=== PATIENT | female | born 1955 | race Caucasian/White ===

== ENCOUNTER 2018-05-30 17:27 | Observation (INO) | payer BC ==
[2018-05-30] MEDS ORDERED: Albuterol/Ipratropium NEB.SOL* Albuterol 2.5 MG/Ipratropium 0.5 MG 3 ML INH ONE (17:52)
[2018-05-30] MEDS ORDERED: predniSONE TAB* 20 MG PO ONE (17:52)
[2018-05-30 18:06] LABS: ABS Basophils 0.1 10^3/ul (0-0.2); ABS Eosinophils 0.9 10^3/ul (0-0.6); ABS Lymphocytes 0.8 10^3/ul (1.0-4.8); ABS Monocytes 0.9 10^3/ul (0-0.8); ABS Neutrophils 9.5 10^3/ul (1.5-7.7); ABS Nucleated RBC 0 10^3/ul; Eosinophil % 7.6 %; Hematocrit 40 % (35-47); Hemoglobin 12.9 g/dl (12.0-16.0); Lymphocyte % 6.7 %; Mean Corpuscular HGB Conc 33 g/dl (31-36); Mean Corpuscular Hemoglobin 30 pg (27-31); Mean Corpuscular Volume 93 fL (80-97); Mean Platelet Volume 7.3 fL (7.4-10.4); Nucleated Red Blood Cells % 0; Platelet Count 302 10^3/ul (150-450); Red Blood Count 4.25 10^6/ul (4.00-5.40); Red Cell Distribution Width 14 % (10.5-15); White Blood Count 12.3 10^3/ul (3.5-10.8)
[2018-05-30 18:26] LABS: Albumin 4.6 g/dL (3.2-5.2); Albumin/Globulin Ratio 1.8 (1-3); BUN/Creatinine Ratio 21.7 (8-20); C Reactive Protein 8.42 mg/L (<8.01); Calcium 9.7 mg/dL (8.6-10.3); EGFR African American 83.5 (>60); Globulin 2.6 g/dL (2-4); Total Bilirubin 0.4 mg/dL (0.2-1.0); Total Protein 7.2 g/dL (6.4-8.9)
[2018-05-30 18:30] LABS: Influenza A Molecular NEGATIVE (Negative); Influenza B Molecular NEGATIVE (Negative)
[2018-05-30] MEDS ORDERED: NS 0.9% 1000 ML** 1,000 ML IV ONE (19:17)
[2018-05-30 21:01] LABS: Urine Appearance Clear; Urine Bilirubin Negative (Negative); Urine Blood Negative (Negative); Urine Color Yellow; Urine Glucose Negative (Negative); Urine Ketones Negative (Negative); Urine Nitrite Negative (Negative); Urine Protein Negative (Negative); Urine Specific Gravity 1.015 (1.010-1.030); Urine Urobilinogen Negative (Negative)
[2018-05-30] MEDS ORDERED: Levofloxacin 750 MG IVPREMIX(* 750 MG/150 ML BAG IVPB ONE (21:43)
[2018-05-30] MEDS ORDERED: Magnesium Sulfate 2 GM IV* 2 GM/50 ML BAG IVPB ONE (21:43)
--- NOTE | 2018-05-31 01:19 | ED ---
Shortness of Breath - HPI Summary HPI Summary: Patient complains of shortness of breath, cough, headache, chills 2 days. Denies fever, sore throat, neck stiffness, CP, N/V/D, abdominal pain, change in urine, change in BM. Medical history is COPD. Denies cardiac history. Also states she has been out of her inhaler for 5 days. Does not have nebulizer. No home O2 at baseline. Negative smoker. - History of Current Complaint Chief Complaint: EDShortnessOfBreath Time Seen by Provider: 05/30/18 17:41 Hx Obtained From: Patient Onset/Duration: Gradual Onset Timing: Constant Current Severity: Moderate Dyspnea At: Exertion Alleviating Factors: Nothing Associated Signs & Symptoms: Cough (Nonproductive), Wheezing, Chills - Allergy/Home Medications Allergies/Adverse Reactions: Allergies Allergy/AdvReac Type Severity Reaction Status Date / Time ibuprofen Allergy Difficulty Verified 05/30/18 17:50 Breathing/Wheezing theophylline Allergy Shakes Verified 05/30/18 17:50 Home Medications: Home Medications Breo Ellipta MDI 100/25(NF) 2 puff INH DAILY 05/30/18 [History Confirmed ] Spiriva Inhaler DEVICE* [Tiotropium Inhaler DEVICE*] 1 puff PO DAILY 05/30/18 [ History Confirmed 05/31/18] PMH/Surg Hx/FS Hx/Imm Hx Endocrine/Hematology History: Denies: Hx Diabetes, Hx Thyroid Disease Cardiovascular History: Denies: Hx Hypertension Respiratory History: Reports: Hx Asthma Denies: Hx Chronic Obstructive Pulmonary Disease (COPD) GI History: Denies: Hx Ulcer Musculoskeletal History: Denies: Hx Rheumatoid Arthritis, Hx Osteoporosis Sensory History: Reports: Hx Cataracts, Hx Contacts or Glasses - GLASSES Denies: Hx Hearing Aid Opthamlomology History: Reports: Hx Cataracts, Hx Contacts or Glasses - GLASSES Psychiatric History: Reports: Hx Depression - ON MEDICATION FOR - Cancer History Hx Chemotherapy: No Hx Radiation Therapy: No - Surgical History Surgery Procedure, Year, and Place: 3 [id number]. FALLOPIAN TUBE REMOVED. HYSTERECTOMY. OVARY REMOVED. I&D for MRSA left underarm Hx Anesthesia Reactions: Yes - REACTION TO IBUPROFEN WITH LAST SURGERY-OVARY REMOVED Infectious Disease History: Yes Infectious Disease History: Reports: Hx of Known/Suspected MRSA, Hx Shingles Denies: Hx Clostridium Difficile, Hx Hepatitis, Hx Human Immunodeficiency Virus (HIV), Hx Tuberculosis, Hx Known/Suspected VRE, Hx Known/Suspected VRSA, History Other Infectious Disease, Traveled Outside the [place] in Last 30 Days - Social History Alcohol Use: Weekly Alcohol Amount: Glass of wine Substance Use Type: Reports: None Smoking Status (MU): Never Smoked Tobacco Review of Systems Constitutional: Negative Eyes: Negative ENT: Negative Cardiovascular: Negative Positive: Shortness Of Breath, Cough Gastrointestinal: Negative Genitourinary: Negative Musculoskeletal: Negative Skin: Negative Positive: Headache Psychological: Normal All Other Systems Reviewed And Are Negative: Yes Physical Exam Triage Information Reviewed: Yes Vital Signs On Initial Exam: Initial Vitals Temp Pulse Resp BP Pulse Ox 99.8 F 134 28 158/89 86 05/30/18 17:34 05/30/18 17:34 05/30/18 17:34 05/30/18 17:34 05/30/18 17:34 Vital Signs Reviewed: Yes Appearance: Positive: Well-Appearing Skin: Positive: Warm Head/Face: Positive: Normal Head/Face Inspection Eyes: Positive: Normal ENT: Positive: Normal ENT inspection Neck: Positive: Supple Respiratory/Lung Sounds: Positive: Wheezes Cardiovascular: Positive: Normal Abdomen Description: Positive: Nontender Musculoskeletal: Positive: Normal Neurological: Positive: Normal Psychiatric: Positive: Normal AVPU Assessment: Alert - [place] Coma Scale Best Eye Response: 4 - Spontaneous Best Motor Response: 6 - Obeys Commands Best Verbal Response: 5 - Oriented Coma Scale Total: 15 Diagnostics - Vital Signs Vital Signs Temp Pulse Resp BP Pulse Ox 05/31/18 00:19 85 23 118/75 93 05/31/18 00:00 86 23 92 05/30/18 23:50 85 22 135/82 93 05/30/18 23:25 98.2 F 05/30/18 23:19 102 15 100/63 95 05/30/18 23:13 97 23 95 05/30/18 23:00 92 17 96 05/30/18 22:49 96 21 119/71 96 05/30/18 22:19 100 20 113/71 96 05/30/18 22:00 104 21 96 05/30/18 21:49 103 14 121/75 95 05/30/18 21:19 115 22 129/73 92 05/30/18 21:00 117 21 90 05/30/18 20:49 20 109/74 05/30/18 20:19 117 19 130/70 91 05/30/18 20:00 117 21 97 05/30/18 19:49 116 19 123/61 96 05/30/18 19:19 132 16 106/67 95 05/30/18 19:00 130 23 90 05/30/18 18:49 129 22 119/64 92 05/30/18 18:46 130 26 116/61 93 05/30/18 18:24 129 15 100 05/30/18 18:00 21 05/30/18 17:49 119 16 141/74 96 05/30/18 17:34 99.8 F 134 28 158/89 86 - Laboratory Lab Results: Lab Results 05/30/18 05/30/18 05/30/18 Range/Units 18:00 18:00 18:00 WBC 12.3 H (3.5-10.8) 10^3/ul RBC 4.25 (4.00-5.40) 10^6/ul Hgb 12.9 (12.0-16.0) g/dl Hct 40 (35-47) % MCV 93 (80-97) fL MCH 30 (27-31) pg MCHC 33 (31-36) g/dl RDW 14 (10.5-15) % Plt Count 302 (150-450) 10^3/ul MPV 7.3 L (7.4-10.4) fL Neut % (Auto) 77.0 % Lymph % (Auto) 6.7 % Pickens % (Auto) 7.5 % Eos % (Auto) 7.6 % Baso % (Auto) 1.2 % Absolute Neuts (auto) 9.5 H (1.5-7.7) 10^3/ul Absolute Lymphs (auto) 0.8 L (1.0-4.8) 10^3/ul Absolute Monos (auto) 0.9 H (0-0.8) 10^3/ul Absolute Eos (auto) 0.9 H (0-0.6) 10^3/ul Absolute Basos (auto) 0.1 (0-0.2) 10^3/ul Absolute Nucleated RBC 0 10^3/ul Nucleated RBC % 0 D-Dimer, Quantitative (Less Than 230) ng/mL ABG pH (7.35-7.45) ABG pCO2 (35-45) mmHg ABG pO2 (80-100) mmHg ABG HCO3 (19-31) mmol/L ABG O2 Saturation (94.0-98.0) % ABG Base Excess (-2.0-2.0) mmol/L Sodium 137 (135-145) mmol/L Potassium 4.0 (3.5-5.0) mmol/L Chloride 104 (101-111) mmol/L Carbon Dioxide 28 (22-32) mmol/L Anion Gap 5 (2-11) mmol/L BUN 18 (6-24) mg/dL Creatinine 0.83 (0.51-0.95) mg/dL Est GFR ( Amer) 83.5 (>60) Est GFR (Non-Af Amer) 69.0 (>60) BUN/Creatinine Ratio 21.7 H (8-20) Glucose 126 H (70-100) mg/dL Lactic Acid 1.1 (0.5-2.0) mmol/L Calcium 9.7 (8.6-10.3) mg/dL Total Bilirubin 0.40 (0.2-1.0) mg/dL AST 16 (13-39) U/L ALT 14 (7-52) U/L Alkaline Phosphatase 58 (34-104) U/L Troponin I 0.00 (<0.04) ng/mL C-Reactive Protein 8.42 H (<8.01) mg/L B-Natriuretic Peptide (<=100) pg/mL Total Protein 7.2 (6.4-8.9) g/dL Albumin 4.6 (3.2-5.2) g/dL Globulin 2.6 (2-4) g/dL Albumin/Globulin Ratio 1.8 (1-3) Urine Color Urine Appearance Urine pH (5-9) Ur Specific Banks (1.010-1.030) Urine Protein (Negative) Urine Ketones (Negative) Urine Blood (Negative) Urine Nitrate (Negative) Urine Bilirubin (Negative) Urine Urobilinogen (Negative) Ur Leukocyte Esterase (Negative) Urine Glucose (Negative) Influenza A (Rapid) (Negative) Influenza B (Rapid) (Negative) 05/30/18 05/30/18 05/30/18 Range/Units 18:00 18:00 18:17 WBC (3.5-10.8) 10^3/ul RBC (4.00-5.40) 10^6/ul Hgb (12.0-16.0) g/dl Hct (35-47) % MCV (80-97) fL MCH (27-31) pg MCHC (31-36) g/dl RDW (10.5-15) % Plt Count (150-450) 10^3/ul MPV (7.4-10.4) fL Neut % (Auto) % Lymph % (Auto) % Pickens % (Auto) % Eos % (Auto) % Baso % (Auto) % Absolute Neuts (auto) (1.5-7.7) 10^3/ul Absolute Lymphs (auto) (1.0-4.8) 10^3/ul Absolute Monos (auto) (0-0.8) 10^3/ul Absolute Eos (auto) (0-0.6) 10^3/ul Absolute Basos (auto) (0-0.2) 10^3/ul Absolute Nucleated RBC 10^3/ul Nucleated RBC % D-Dimer, Quantitative < 200 (Less Than 230) ng/mL ABG pH (7.35-7.45) ABG pCO2 (35-45) mmHg ABG pO2 (80-100) mmHg ABG HCO3 (19-31) mmol/L ABG O2 Saturation (94.0-98.0) % ABG Base Excess (-2.0-2.0) mmol/L Sodium (135-145) mmol/L Potassium (3.5-5.0) mmol/L Chloride (101-111) mmol/L Carbon Dioxide (22-32) mmol/L Anion Gap (2-11) mmol/L BUN (6-24) mg/dL Creatinine (0.51-0.95) mg/dL Est GFR ( Amer) (>60) Est GFR (Non-Af Amer) (>60) BUN/Creatinine Ratio (8-20) Glucose (70-100) mg/dL Lactic Acid (0.5-2.0) mmol/L Calcium (8.6-10.3) mg/dL Total Bilirubin (0.2-1.0) mg/dL AST (13-39) U/L ALT (7-52) U/L Alkaline Phosphatase (34-104) U/L Troponin I (<0.04) ng/mL C-Reactive Protein (<8.01) mg/L B-Natriuretic Peptide 79 (<=100) pg/mL Total Protein (6.4-8.9) g/dL Albumin (3.2-5.2) g/dL Globulin (2-4) g/dL Albumin/Globulin Ratio (1-3) Urine Color Urine Appearance Urine pH (5-9) Ur Specific Banks (1.010-1.030) Urine Protein (Negative) Urine Ketones (Negative) Urine Blood (Negative) Urine Nitrate (Negative) Urine Bilirubin (Negative) Urine Urobilinogen (Negative) Ur Leukocyte Esterase (Negative) Urine Glucose (Negative) Influenza A (Rapid) Negative (Negative) Influenza B (Rapid) Negative (Negative) 05/30/18 05/30/18 05/30/18 Range/Units 18:20 20:35 20:47 WBC (3.5-10.8) 10^3/ul RBC (4.00-5.40) 10^6/ul Hgb (12.0-16.0) g/dl Hct (35-47) % MCV (80-97) fL MCH (27-31) pg MCHC (31-36) g/dl RDW (10.5-15) % Plt Count (150-450) 10^3/ul MPV (7.4-10.4) fL Neut % (Auto) % Lymph % (Auto) % [place] % (Auto) % Eos % (Auto) % Baso % (Auto) % Absolute Neuts (auto) (1.5-7.7) 10^3/ul Absolute Lymphs (auto) (1.0-4.8) 10^3/ul Absolute Monos (auto) (0-0.8) 10^3/ul Absolute Eos (auto) (0-0.6) 10^3/ul Absolute Basos (auto) (0-0.2) 10^3/ul Absolute Nucleated RBC 10^3/ul Nucleated RBC % D-Dimer, Quantitative (Less Than 230) ng/mL ABG pH 7.46 H 7.45 (7.35-7.45) ABG pCO2 35 33 L (35-45) mmHg ABG pO2 153 H 67 L (80-100) mmHg ABG HCO3 26.0 24.5 (19-31) mmol/L ABG O2 Saturation 98.7 H 95.1 (94.0-98.0) % ABG Base Excess 1.4 -0.4 (-2.0-2.0) mmol/L Sodium (135-145) mmol/L Potassium (3.5-5.0) mmol/L Chloride (101-111) mmol/L Carbon Dioxide (22-32) mmol/L Anion Gap (2-11) mmol/L BUN (6-24) mg/dL Creatinine (0.51-0.95) mg/dL Est GFR ( Amer) (>60) Est GFR (Non-Af Amer) (>60) BUN/Creatinine Ratio (8-20) Glucose (70-100) mg/dL Lactic Acid (0.5-2.0) mmol/L Calcium (8.6-10.3) mg/dL Total Bilirubin (0.2-1.0) mg/dL AST (13-39) U/L ALT (7-52) U/L Alkaline Phosphatase (34-104) U/L Troponin I (<0.04) ng/mL C-Reactive Protein (<8.01) mg/L B-Natriuretic Peptide (<=100) pg/mL Total Protein (6.4-8.9) g/dL Albumin (3.2-5.2) g/dL Globulin (2-4) g/dL Albumin/Globulin Ratio (1-3) Urine Color Yellow Urine Appearance Clear Urine pH 6.0 (5-9) Ur Specific Banks 1.015 (1.010-1.030) Urine Protein Negative (Negative) Urine Ketones Negative (Negative) Urine Blood Negative (Negative) Urine Nitrate Negative (Negative) Urine Bilirubin Negative (Negative) Urine Urobilinogen Negative (Negative) Ur Leukocyte Esterase Negative (Negative) Urine Glucose Negative (Negative) Influenza A (Rapid) (Negative) Influenza B (Rapid) (Negative) Result Diagrams: 05/30/18 18:00 05/30/18 18:00 Lab Statement: Any lab studies that have been ordered have been reviewed, and results considered in the medical decision making process. Course/Dx - Course Course Of Treatment: Patient complains of shortness of breath, cough, headache, chills 2 days. Denies fever, sore throat, neck stiffness, CP, N/V/D, abdominal pain, change in urine, change in BM. Medical history is COPD. Denies cardiac history. Also states she has been out of her inhaler for 5 days. Does not have nebulizer. No home O2 at baseline. Negative smoker. Bilateral wheezes. O2 sats persistently 88% when not on O2, ABG PO2 67%, and after 2 DuoNeb's. Patient placed on O2 at 2 L burning O2 sats up to 95%. Patient persistently tachycardic. Vital signs otherwise within normal limits. EKG unremarkable. Chest x-ray unremarkable. Flu negative. WBC 12.3. D-dimer negative. Admitted to hospitalist for COPD exacerbation, hypoxia, respiratory illness. Patient started on Levaquin. - Diagnoses Provider Diagnoses: COPD exacerbation, Hypoxia, Respiratory illness Discharge - Sign-Out/Discharge Documenting (check all that apply): Patient Departure Patient Received Moderate/Deep Sedation with Procedure: No - Discharge Plan Condition: Stable Disposition: ADMITTED TO [facility] - Billing Disposition and Condition Condition: STABLE Disposition: Admitted to [facility]
[2018-05-31] MEDS ORDERED: Acetaminophen TAB* 325 MG PO PRN (01:45)
[2018-05-31] MEDS ORDERED: Ondansetron INJ* 2 MG/ML VIAL IV PRN (01:45)
[2018-05-31] MEDS ORDERED: Azithromycin TAB* 250 MG PO SCH (02:00)
[2018-05-31] MEDS: Albuterol/Ipratropium NEB.SOL* Albuterol 2.5 MG/Ipratropium 0.5 MG 3 ML INH SCH ×4 (02:42→19:58)
--- NOTE | 2018-05-31 04:31 | HP ---
CC: Dr. Gill Gifford * HISTORY AND PHYSICAL: DATE OF ADMISSION: 05/31/18 PRIMARY CARE PROVIDER: Dr. Gill Gifford. CHIEF COMPLAINT: Shortness of breath. HISTORY OF PRESENT ILLNESS: This is a 63-year-old female with past medical history of asthma, who now presents to the emergency room with complaints of shortness of breath. The patient states that shortness of breath has been progressively worsening over the course of 1 day. The patient reports that she was in [facility] for 5 days and had forgotten her inhalers at home. She has not had any fever, however, is having chills, no palpitations. The shortness of breath is associated with cough of green-colored sputum production. She has not had been exposed to sick people or people with the flu. PAST MEDICAL HISTORY: Asthma. PAST SURGICAL HISTORY: 1. x3. 2. Ovary removal. 3. Hysterectomy. MEDICATIONS: Home medications include: 1. Spiriva 1 puff daily. 2. Sertraline 10 mg at bedtime. 3. Breo-Ellipta 100/25 two puffs inhaled daily. 4. Albuterol inhaler 2 puffs as needed every 6 hours. ALLERGIES: IBUPROFEN as well as THEOPHYLLINE. FAMILY HISTORY: Mother: Lung cancer. Father: of old age, he lived till he was 87. SOCIAL HISTORY: She lives at home with her , does not smoke, occasional wine. REVIEW OF SYSTEMS: She is having chills, however, no noted fever, she is not having any changes in her vision or hearing, no sore throat, she denied any chest pain, see HPI. She is having cough with shortness of breath with green color sputum production. She has not had any abdominal pain, no nausea, no vomiting, no diarrhea, no hematuria, no dysuria, no hesitancy, no rectal pain, no lower extremity edema. She is not having any pain at the joints, no back pain, no headaches, no focal weakness or numbness. PHYSICAL EXAMINATION GENERAL: This is a well-developed, well-nourished female, lying in an ER stretcher in mild respiratory distress. VITAL SIGNS: Blood pressure of 118/75, heart rate of 83, respiratory rate of 23 , pulse ox of 93% on 2 L nasal cannula; once we take her off of oxygen, her pulse ox goes down to 86%. Upon arrival to the emergency room at 5:34, it was documented that her pulse ox was 86%. HEENT: Pupils are equal, round, reactive to light. Atraumatic, normocephalic. Oral mucosa is moist, no nystagmus. LUNGS: There is tachypnea with no use of accessory muscles. She has supplemental oxygenation via nasal cannula. There is moderate wheezing heard throughout all lung pedroza. HEART: There is no chest wall tenderness. Regular rate and rhythm. No murmurs , rubs, or gallops. ABDOMEN: Bowel sounds are normoactive in all 4 quadrants. Abdomen is soft, nontender, nondistended. EXTREMITIES: There is no lower extremity edema, no calf tenderness, dorsalis pedis is 2+ bilaterally. NEUROLOGIC: Alert and oriented x3. Speech is clear and coherent. No facial droop. She is moving all 4 extremities without any difficulty, equal strength. SKIN: There are no rashes or lesions. DIAGNOSTIC STUDIES/LAB DATA: White count of 12.3, hemoglobin of 12, hematocrit of 40, platelets of 302. D-dimer is less than 200. ABG shows pH of 7.45, pCO2 of 33, pO2 of 67. Sodium of 137, potassium of 4.0, BUN of 18, creatinine 0.83, glucose of 126, lactic acid of 1.1, CRP of 8.42. Urinalysis is grossly negative, specific gravity 1.015, negative for bilirubin, negative for nitrites, negative for leukocyte esterases. Chest x-ray official report is pending. I do not appreciate any infiltrate. EKG shows sinus tachycardia. IMPRESSION AND PLAN: 1. Asthma exacerbation with hypoxia: We will start the patient on prednisone 40 mg daily, continue DuoNebs, continue supplemental oxygenation. We will start the patient on azithromycin. 2. History of depression: Continue home medication of sertraline. 3. Deep venous thrombosis prophylaxis with heparin subcu. 4. Regular diet. [id number]/[facility] #: [id number] [facility]
[2018-05-31] MEDS ORDERED: Tiotropium CAP.INH* CAP.INH/18 MCG (USE ORDER SET !) INH ONE (07:24)
[2018-05-31] MEDS: Tiotropium CAP.INH* CAP.INH/18 MCG (USE ORDER SET !) INH SCH (07:27)
[2018-05-31] MEDS: Azithromycin TAB* 250 MG PO SCH (08:02)
[2018-05-31] MEDS: Heparin VIAL(*) 5000 UNITS/ML VIAL (FIVE THOUSAND) SUBCUT SCH ×2 (08:03→22:00)
[2018-05-31] MEDS: predniSONE TAB* 20 MG PO SCH (08:03)
[2018-05-31] MEDS ORDERED: Spiriva Inhaler DEVICE* 1 EACH DEVICE INH ONE (09:00)
[2018-05-31] MEDS ORDERED: Fluticasone/Vilanterol MDI(NF) 100/25 MDI INH SCH (09:00)
[2018-05-31] MEDS ORDERED: Spiriva Inhaler DEVICE* 1 EACH DEVICE INH SCH (09:00)
--- NOTE | 2018-05-31 09:33 | PN ---
Subjective Date of Service: 05/31/18 Interval History: Pt went to [facility] for 5 days and forgot her home medications (Breo and Respimat) and developed SOB, cough, wheeze upon return. Today, she states she is feeling better, and no longer feels chest tightness. She continues to have shortness of breath, but it has improved. She denies CP and has not had documented fevers, although she reports subjective fevers, as well as chills and sweats. She c/o productive cough, which she states she developed after the asthma exacerbation. She denies abd pain, n/v/d/c, extremity pain, weakness, calf tenderness. Pt is on 1.5L NC; she does not use home oxygen. Objective Active Medications: Acetaminophen (Tylenol Tab*) 650 mg PO Q6H PRN Albuterol/Ipratropium (Duoneb (Albuterol 2.5 Mg/Ipratropium 0.5 Mg)) 1 neb INH [id number] AWAKE KADE Azithromycin (Zithromax Tab*) 500 mg PO DAILY KADE Heparin Sodium (Porcine) (Heparin Vial(*)) 5,000 units SUBCUT Q12HR KADE Mometasone Furoate/Formoterol Fumar (Dulera 200/5 Mdi*) 2 puff INH BID KADE Ondansetron HCl (Zofran Inj*) 4 mg IV Q6H PRN Prednisone (Deltasone Tab*) 40 mg PO DAILY KADE Tiotropium [place] (Spiriva Cap.Inh*) 1 cap INH DAILY KADE Vital Signs: Temp Pulse Resp BP Pulse Ox 98.0 F 80 16 100/54 96 05/31/18 07:41 05/31/18 07:41 05/31/18 07:41 05/31/18 07:41 05/31/18 07:41 Oxygen Devices in Use Now: Nasal Cannula - 1.5L Appearance: Pt is sitting up in bed. She is in no acute distress, no respiratory distress. She appears well and comfortable. Eyes: No Scleral Icterus, PERRLA Ears/Nose/Mouth/Throat: NL Teeth, Lips, Gums, Clear Oropharnyx, Mucous Membranes Moist Neck: NL Appearance and Movements; NL JVP, Trachea Midline Respiratory: Symmetrical Chest Expansion and Respiratory Effort, - - No use of accessory muscles. Breath sounds decreased with wheezing throughout b/l lung pedroza. No rhonchi or rales. Cardiovascular: NL Sounds; No Murmurs; No JVD, RRR, No Edema Abdominal: NL Sounds; No Tenderness; No Distention, No Hepatosplenomegaly Extremities: No Edema, No Clubbing, Cyanosis Neurological: Alert and Oriented x 3 Result Diagrams: 05/30/18 18:00 05/30/18 18:00 Assess/Plan/Problems-Billing Assessment: Pt is a 63yof with PMHx asthma and depression who is admitted for asthma exacerbation with hypoxia. - Patient Problems (1) Asthma exacerbation Comment: -Improved since yesterday with q4h neb, spiriva and dulera. Still wheeze and decreased breath sounds -Continue spiriva, dulera, nebs, steroids, azithromycin -Attempt to wean off O2; continue if sats <92% (2) Depression Comment: -Continue Zoloft (3) DVT prophylaxis Comment: -Heparin (4) Full code status Status and Disposition: Observation. Discharge once stable.
[2018-05-31 10:16] LABS: ABS Basophils 0 10^3/ul (0-0.2); ABS Eosinophils 0 10^3/ul (0-0.6); ABS Lymphocytes 0.6 10^3/ul (1.0-4.8); ABS Monocytes 0.5 10^3/ul (0-0.8); ABS Neutrophils 7.9 10^3/ul (1.5-7.7); ABS Nucleated RBC 0 10^3/ul; Eosinophil % 0 %; Hematocrit 34 % (35-47); Hemoglobin 11.4 g/dl (12.0-16.0); Lymphocyte % 6.3 %; Mean Corpuscular HGB Conc 33 g/dl (31-36); Mean Corpuscular Hemoglobin 31 pg (27-31); Mean Corpuscular Volume 93 fL (80-97); Mean Platelet Volume 7.4 fL (7.4-10.4); Nucleated Red Blood Cells % 0; Platelet Count 273 10^3/ul (150-450); Red Blood Count 3.68 10^6/ul (4.00-5.40); Red Cell Distribution Width 14 % (10.5-15); White Blood Count 8.9 10^3/ul (3.5-10.8)
[2018-05-31 10:30] LABS: BUN/Creatinine Ratio 23.8 (8-20); EGFR African American 114.8 (>60); EGFR Non-African American 94.8 (>60); Potassium 4.1 mmol/L (3.5-5.0)
[2018-05-31] MEDS: Sertraline* 50 MG TAB PO SCH (10:41)
[2018-05-31] MEDS: Mometasone/Formoter 200/5 MDI INH SCH ×2 (10:41→19:58)
[2018-05-31] MEDS ORDERED: Sertraline* 50 MG TAB PO SCH (18:00)
[2018-06-01] MEDS: Albuterol/Ipratropium NEB.SOL* Albuterol 2.5 MG/Ipratropium 0.5 MG 3 ML INH SCH ×3 (01:35→13:24)
[2018-06-01] MEDS: Tiotropium CAP.INH* CAP.INH/18 MCG (USE ORDER SET !) INH SCH (08:24)
[2018-06-01] MEDS: Mometasone/Formoter 200/5 MDI INH SCH (08:24)
[2018-06-01] MEDS: Sertraline* 50 MG TAB PO SCH (09:24)
[2018-06-01] MEDS: predniSONE TAB* 20 MG PO SCH (09:24)
[2018-06-01] MEDS: Azithromycin TAB* 250 MG PO SCH (09:24)
[2018-06-01] MEDS: Heparin VIAL(*) 5000 UNITS/ML VIAL (FIVE THOUSAND) SUBCUT SCH (09:25)
[2018-06-01 11:38] VITALS: BP 118/62
--- NOTE | 2018-06-01 13:25 | DS ---
CC: Dr. Gill Gifford * DISCHARGE SUMMARY: DATE OF ADMISSION: 05/31/18 DATE OF DISCHARGE: 06/01/18 PRIMARY CARE PROVIDER: Dr. Gill Gifford. DISCHARGE DIAGNOSIS: Asthma exacerbation. SECONDARY DIAGNOSIS: History of asthma. MEDICATIONS AT DISCHARGE: Include: 1. Spiriva inhaler 1 puff daily. 2. Sertraline 10 mg daily. 3. Breo-Ellipta 100/25 two puffs daily. 4. Albuterol inhaler on a p.r.n. basis. 5. Prednisone 40 mg daily for a total of 4 days, then stop. 6. Azithromycin 250 mg for a total of 3 days, then stop. LABORATORY DATA PERFORMED DURING THE HOSPITAL STAY: Included: On 05/31/18, sodium of 138, potassium 4.1, chloride 107, carbon dioxide 24, BUN 15, creatinine 0.63. White blood cell count of 8.9, hemoglobin of 11.4, hematocrit of 34, and platelets of 273. Microbiology testing shows sputum culture that is still pending. Blood culture is unremarkable. Influenza testing was negative. Portable chest x-ray obtained at admission. Impression: "No evidence of active cardiopulmonary disease." HOSPITALIZATION COURSE: Anamaria Campo is a 63-year-old female with history of asthma who stated that she went to [facility] and she forgot her inhalers. When she came back, she developed severe shortness of breath and she was admitted to the hospital for asthma exacerbation. She was treated with parenteral steroids and azithromycin with good results. By the time of discharge, she was comfortable, still complaining of some occasional dry cough, but otherwise no wheezing and oxygenating on room air at 95%. She is going to be discharged home with recommendation to follow up with her primary care provider in approximately 4 to 7 days. PHYSICAL EXAM AT THE TIME OF DISCHARGE: Blood pressure of 118/62, heart rate of 79 and regular, respiratory rate 16, oxygen saturation 93% on room air, temperature 97.9. General: The patient is a very pleasant 63-year-old female who is in no acute distress. Alert, awake, and oriented x3. HEENT: Head: Atraumatic, normocephalic. Eyes: Pupils are equal, reactive to light and accommodation. Oropharynx is clear. Mucosa moist. Neck: Supple. No JVD. No bruits bilaterally. Cardiovascular: Regular rate and rhythm. No murmur. Respiratory: Clear to auscultation bilaterally. Abdomen: Soft, nontender. Bowel sounds are present in all 4 quadrants. Extremities: There is no edema. Pulses are +2 bilaterally. No clubbing or cyanosis. On neuro evaluation, speech clear. Cranial nerves II through XII grossly intact. Motor strength is 5/5 bilaterally. Please note that this is a short summary of the patient's hospitalization. Please refer to further medical records for details. TIME SPENT: Approximately 32 minutes was spent on the patient's discharge. [id number]/[facility] #: [id number] [facility]
== END 2018-06-01 13:30 | disposition home or self-care (01) ==
LOC: ED 17:27 → MEDTELE 05-31 01:39
PROVIDERS: ADMIT Internal Medicine; ATTEND Internal Medicine
DX: J44.1 Chronic obstructive pulmonary disease with (acute) exacerbation (principal); R09.02 Hypoxemia; R06.2 Wheezing; R06.02 Shortness of breath; R05 Cough; R51 Headache
CPT/HCPCS: 36415; 71046; 80048; 80053; 81003; 82803; 83605; 83880; 84484; 85025; 85379; 86140; 87040; 87070; 87205; 93005; 94640; 96365; 96366; 96372; 96375; 99284; A9270-GY; G0378; J1644; J3475; J7512